=== PATIENT | male | born 1990 | race African-American/Black ===

== ENCOUNTER 2016-12-07 20:44 | Emergency (ER) | payer SELFPAY ==
[2016-12-07 20:52] VITALS: BMI 25.1
--- NOTE | 2016-12-07 21:53 | PDOC ---
History of Present Illness - General Chief Complaint: Pain Stated Complaint: ABDOMINAL PAIN Time Seen by Provider: 12/07/16 21:53 - History of Present Illness Initial Comments: 26 year old male, with PMH of HTN, diabetes, GERD, and gastroparesis presenting via EMS with nausea, vomiting and abdominal pain for the past 2 days. He denies recent sick symptoms or sick contacts stating that the diffuse, crampy abdominal pain began without inciting event. Of note, has recently run out of his insulin 2-3 weeks ago. He had non-bilious, non-bloody vomiting x 6 yesterday with 4 episodes today. His last bowel movement was yesterday afternoon and it was small, formed and non-bloody. He denies fevers, chills, diarrhea, constipation, chest pain, SOB, or other symptoms. He actually went to his job earlier this morning and felt OK for a short period of time and ate a sausage, egg, and cheese sandwich but started vomiting again a few hours after that. His PMD is Andria Aragon and he last saw her 2 months ago. His last ED visit for similar symptoms was 03/2016 during which he had the exact same symptoms for 5 days and was given IV fluids + Reglan with good resolution of symptoms and discharged with Reglan PO. 12/07/16 22:17 Past History - Past Medical History Allergies/Adverse Reactions: Allergies Allergy/AdvReac Type Severity Reaction Status Date / Time No Known Allergies Allergy Verified 12/07/16 20:50 Home Medications: Ambulatory Orders Lisinopril 5 mg PO DAILY 03/12/15 Metoclopramide HCl [Reglan] 10 mg PO AC 03/12/15 Insulin Aspart [Novolog] 0 unit SQ AC 03/30/15 Insulin Glargine,Hum.rec.anlog [Lantus (nf)] 30 units SQ HS 03/30/15 Ciprofloxacin [Cipro -] 500 mg PO Q12H #20 tablet 02/03/16 Ondansetron [Zofran -] 4 mg PO TID PRN #21 tablet 04/16/16 Metoclopramide HCl [Reglan -] 10 mg PO TID #21 tablet 04/18/16 Anemia: No Asthma: No Cancer: No Cardiac Disorders: No CVA: No COPD: No CHF: No Dementia: No Diabetes: Yes (since age 12) GI Disorders: Yes (GERD, gastroparesis) Disorders: No HTN: Yes Hypercholesterolemia: No Liver Disease: No Seizures: No Thyroid Disease: No - Surgical History Abdominal Surgery: No Appendectomy: No Cardiac Surgery: No Cholecystectomy: No Lung Surgery: No Neurologic Surgery: No Orthopedic Surgery: No - Family Disease History Family Disease History: Diabetes: Father, Heart Disease: Father - Immunization History Immunization Up to Date: Yes - Psycho/Social/Smoking Cessation Hx Anxiety: No Suicidal Ideation: No Smoking Status: No Smoking History: Never smoked Have you smoked in the past 12 months: No Number of Cigarettes Smoked Daily: 0 Information on smoking cessation initiated: No Hx Alcohol Use: No Drug/Substance Use Hx: No Substance Use Type: Marijuana Hx Substance Use Treatment: No Review of Systems - Review of Systems Constitutional: No: Chills, Diaphoresis HEENTM: No: Blurred Vision, Recent change in vision Respiratory: No: Cough, Shortness of Breath, SOB with Exertion ABD/GI: Yes: Nausea, Poor Fluid Intake, Vomiting, Abdominal cramping. No: Abdominal Distended, Constipated : No: Burning, Dysuria, Discharge, Hematuria, Incontinence *Physical Exam - Vital Signs Last Vital Signs Temp Pulse Resp BP Pulse Ox 98.6 F 52 L 18 135/72 100 12/07/16 20:50 12/07/16 20:50 12/07/16 20:50 12/07/16 20:50 12/07/16 20:50 - Physical Exam General Appearance: Yes: Nourished, Appropriately Dressed, Other (Sleeping and not complaining of pain.). No: Apparent Distress HEENT: positive: EOMI, HAMMAD, Normal ENT Inspection, Normal Voice, Other (Mucous membranes dry) Neck: positive: Trachea midline, Normal Thyroid, Supple. negative: Tender, Rigid Respiratory/Chest: positive: Lungs Clear, Normal Breath Sounds. negative: Chest Tender, Respiratory Distress Cardiovascular: positive: Regular Rhythm, Regular Rate, S1, S2. negative: Edema , Murmur Gastrointestinal/Abdominal: positive: Normal Bowel Sounds, Tender (Diffusely tender), Flat, Soft Musculoskeletal: positive: Normal Inspection Extremity: positive: Normal Inspection, Normal Range of Motion, Other (Patient able to ambulate without any instability or other issues.) Integumentary: positive: Normal Color, Dry, Warm Neurologic: positive: Fully Oriented, Alert, Normal Mood/Affect, Normal Response , Motor Strength 5/5 ED Treatment Course - LABORATORY CBC & Chemistry Diagram: 12/07/16 22:40 12/07/16 22:40 Medical Decision Making - Medical Decision Making 26 year old male with history of diabetes and gastroparesis presenting with nausea, vomiting, and abdominal pain over the past two days. This is concerning for gastroparesis vs. DKA. Will first get CBC, CMP, mg, phos, and UA. Will also give one liter IV fluid, pepcid, and zofran. If symptoms resolve and patient can tolerate PO, then will send home with metformin and return precautions. If patient's symptoms not resolving then can get abdominal films. 12/07/16 22:17 12/08/16 02:21 Patient's symptoms resolved. He tolerated PO well. Denied necessity of metformin. UA positive for ketones but glucose WNL and no acetone in blood. Will DC patient with return precautions. 12/08/16 02:25 *DC/Admit/Observation/Transfer Diagnosis at time of Disposition: Nausea and vomiting, Stomach pain - Discharge Dispostion Disposition: HOME Condition at time of disposition: Improved Admit: No - Patient Instructions Additional Instructions: You were seen for stomach pain. We are unsure what the exact cause was but its important that you follow up with your primary care physician and discuss the need for your diabetes medications as your blood sugar was normal here in the ED. Please return if you have worsening vomiting, fevers, chills, or other issues. - Post Discharge Activity Work/School Note: Back to Work - Attestations Physician Attestion: 12/08/16 02:25 I, Dr. Jonathan Harrison, attest that this document has been prepared under my direction and personally reviewed by me in its entirety. I further attest, that it accurately reflects all work, treatment, procedures and medical decision -making performed by me.
[2016-12-07] MEDS ORDERED: SODIUM CHLORIDE 1,000 ML IV STA (22:11)
[2016-12-07] MEDS ORDERED: ONDANSETRON 4 MG/2 ML VIAL IVPB ONE (22:25)
[2016-12-07] MEDS ORDERED: FAMOTIDINE 20 MG/50 ML IVPB 50 ML IVPB ONE ×2 (22:25→22:42)
[2016-12-07] MEDS ORDERED: ONDANSETRON 4 MG/2 ML VIAL ONE (22:42)
[2016-12-07 22:49] LABS: BASOPHIL 0.5 % (0-2.0); EOSINOPHIL 0.1 % (0-4.5); MCHC 32.9 g/dl (32.0-35.9); MEAN CELL VOLUME 88.3 fl (80-96); NEUTROPHILS 78.6 % (42.8-82.8); PLATELET COUNT 161 K/MM3 (134-434); RDW 13.5 % (11.9-15.9); WHITE BLOOD COUNT 6.6 K/mm3 (4.0-10.0)
[2016-12-07 23:16] LABS: ALBUMIN 4.1 g/dl (3.4-5.0); ALK PHOS 68 U/L (45-117); ANION GAP 7 (8-16); BILIRUBIN,TOTAL 0.9 mg/dL (0.2-1.0); CALCIUM 9.3 mg/dL (8.5-10.1); CO2 30 mmol/L (21-32); CREATININE 0.9 mg/dL (0.7-1.3); GLUCOSE,RANDOM 117 mg/dL (74-106); MAGNESIUM 2.2 mg/dL (1.8-2.4); PHOSPHOROUS 3.7 mg/dL (2.5-4.9); SGOT/AST 21 U/L (15-37); SGPT/ALT 32 U/L (12-78)
--- NOTE | 2016-12-07 23:56 | PDOC ---
Attending Attestation - Resident Resident Name: Jonathan Harrison - HPI HPI: 12/07/16 23:55 Pt comes with nausea and vomiting and gastroparesis. He is nocompliant with his meds for DM and HTN; however in the ER, pt's exam reveals neither DM or HTN. - Physicial Exam PE: 12/08/16 04:20 Agree with resident exam - Medical Decision Making 12/08/16 04:20 Home with clinic or PMD follow up. Pt has normal labs and he is feeling better in the ER with N/V management and with hydration.
[2016-12-08 01:25] LABS: URINE APPEARANCE SLCLOUDY; URINE BILIRUBIN NEGATIVE (NEGATIVE); URINE BLOOD NEGATIVE (NEGATIVE); URINE COLOR YELLOW; URINE GLUCOSE (UA) NEGATIVE (NEGATIVE); URINE KETONE 2+ (NEGATIVE); URINE LEUK ESTERASE NEGATIVE (NEGATIVE); URINE NITRITE NEGATIVE (NEGATIVE); URINE UROBILINOGEN NEGATIVE mg/dL (0.2-1.0)
[2016-12-08 01:33] LABS: URINE PROTEIN 2+ (NEGATIVE)
[2016-12-08 01:36] LABS: URINE HYALINE CAST 3 /lpf; URINE MUCUS MANY; URINE RBC 1 /hpf (0-3); URINE WBC 9 /hpf (3-5)
[2016-12-08 02:26] VITALS: BP 116/84; PULSE 89; TEMP 98.8
== END 2016-12-08 03:04 | disposition home or self-care (01) ==
LOC: JER 20:44
PROC: 3E033GC Introduction of Other Therapeutic Substance into Peripheral Vein, Percutaneous Approach (ICD-10-PCS; principal; 2016-12-07)
PROC: 3E033GC Introduction of Other Therapeutic Substance into Peripheral Vein, Percutaneous Approach (ICD-10-PCS; 2016-12-07)
DX: R10.84 Generalized abdominal pain (principal); E10.9 Type 1 diabetes mellitus without complications; Z79.4 Long term (current) use of insulin; I10 Essential (primary) hypertension; K31.84 Gastroparesis
CPT/HCPCS: 36415; 80053; 81003; 81015; 82009; 83735; 84100; 85025; 99283-25

== ENCOUNTER 2017-08-26 09:39 | Emergency (ER) | payer SELFPAY ==
[2017-08-26 09:45] VITALS: TEMP 98.2; BMI 26.4
[2017-08-26] MEDS ORDERED: SODIUM CHLORIDE 1,000 ML IV STA ×2 (10:03→11:38)
[2017-08-26] MEDS ORDERED: METOCLOPRAMIDE HCL INJECTION 10 MG/2 ML VIAL IVPB ONE (10:03)
[2017-08-26] MEDS ORDERED: KETOROLAC TROMETHAMINE 30 MG/1 ML VIAL IVPUSH ONE (10:06)
[2017-08-26] MEDS ORDERED: METOCLOPRAMIDE HCL INJECTION 10 MG/2 ML VIAL ONE (10:33)
[2017-08-26] MEDS ORDERED: KETOROLAC TROMETHAMINE 30 MG/1 ML VIAL ONE (10:33)
[2017-08-26 10:38] LABS: VENOUS PC02 43.2 mmHg (38-52); VENOUS PH 7.48 (7.32-7.42); VENOUS PO2 73.2 mmHg (28-48)
[2017-08-26 10:39] LABS: BASO % 0.7 % (0-2.0); EOS % 0.2 % (0-4.5); HEMATOCRIT 41.3 % (35.4-49); LYMPH % 26.1 % (8-40); MCH 29.9 pg (25.7-33.7); MCHC 33.8 g/dl (32.0-35.9); MEAN CELL VOLUME 88.4 fl (80-96); MEAN PLT VOLUME 9.7 fl (7.5-11.1); MONO % 9.4 % (3.8-10.2); NEUT % 63.6 % (42.8-82.8); PLATELET COUNT 146 K/MM3 (134-434); RBC 4.67 M/mm3 (4.00-5.60); RDW 12.7 % (11.9-15.9); WHITE BLOOD COUNT 5.8 K/mm3 (4.0-10.0)
[2017-08-26 10:42] LABS: URINE APPEARANCE CLEAR; URINE BILIRUBIN NEGATIVE (<2.0 mg/dL); URINE COLOR YELLOW; URINE GLUCOSE (UA) NEGATIVE (NEGATIVE); URINE KETONE 1+ (NEGATIVE); URINE LEUK ESTERASE NEGATIVE (NEGATIVE); URINE NITRITE NEGATIVE (NEGATIVE); URINE UROBILINOGEN 4.0 E.U/dl mg/dL (0.2-1.0)
[2017-08-26 10:44] LABS: URINE PROTEIN 2+ (NEGATIVE)
[2017-08-26 10:46] LABS: EPI CELLS RARE /HPF (FEW); URINE BACTERIA RARE /hpf (NONE SEEN); URINE MUCUS RARE
[2017-08-26 11:02] LABS: ALBUMIN 3.8 g/dl (3.4-5.0); ALK PHOS 76 U/L (45-117); ANION GAP 7 (8-16); BILIRUBIN,TOTAL 0.9 mg/dL (0.2-1.0); BLOOD UREA NITROGEN 10 mg/dL (7-18); CALCIUM 8.7 mg/dL (8.5-10.1); CHLORIDE 101 mmol/L (98-107); CO2 31 mmol/L (21-32); CREATININE 0.9 mg/dL (0.7-1.3); GLUCOSE,RANDOM 138 mg/dL (74-106); LIPASE 64 U/L (73-393); MAGNESIUM 2.3 mg/dL (1.8-2.4); POTASSIUM 3.4 mmol/L (3.5-5.1); SGOT/AST 44 U/L (15-37); SGPT/ALT 40 U/L (12-78); SODIUM 139 mmol/L (136-145); TOT PROT 7.1 g/dl (6.4-8.2)
[2017-08-26 11:04] LABS: COCAINE, UR NEGATIVE ng/ml (CUTOFF=300); METHADONE, UR NEGATIVE ng/ml (CUTOFF=300); OPIATES, URI NEGATIVE ng/ml (CUTOFF=300); PHENCYCLIDINE,URINE NEGATIVE ng/ml (CUTOFF=25); URINE AMPHETAMINES NEGATIVE ng/ml (CUTOFF=500); URINE BARBITURATES NEGATIVE ng/ml (CUTOFF=200); URINE BENZODIAZEPINES NEGATIVE ng/ml (CUTOFF=200)
[2017-08-26] MEDS ORDERED: POTASSIUM CHLORIDE TABS 20 MEQ TABLET.ER (FP) PO ONE ×2 (11:38→11:54)
--- NOTE | 2017-08-26 11:45 | PDOC ---
History of Present Illness - General Chief Complaint: Pain, Acute Stated Complaint: ABD PAIN, VOMITING Time Seen by Provider: 08/26/17 10:02 History Source: Patient Exam Limitations: No Limitations - History of Present Illness Travel History: No Initial Comments: 08/26/17 10:40 27 yr old male presents to the emergency with complaints of abdominal pain including generalized weakness along with nausea vomiting. Patient denies fever , chills, recent change in medication or weight. Patient denies recent travel but states was a [place] a few days prior secondary to the same complaints. Patient states continues to smoke marijuana by recommendations. Patient denies elevated glucose, urine output, increased thirst, increased hunger. Timing/Duration: reports: intermittent Quality: reports: moderate, cramping Abdominal Pain Onset Location: reports: generalized abdomen Alleviating Factors: improves with: Vomiting Past History - Travel Traveled outside of the country in the last 30 days: No - Past Medical History Allergies/Adverse Reactions: Allergies Allergy/AdvReac Type Severity Reaction Status Date / Time No Known Allergies Allergy Verified 08/26/17 09:40 Home Medications: Ambulatory Orders Insulin Aspart [Novolog] 0 unit SQ AC 03/30/15 Insulin Glargine,Hum.rec.anlog [Lantus (nf)] 30 units SQ HS 03/30/15 Anemia: No Asthma: No Cancer: No Cardiac Disorders: No CVA: No COPD: No CHF: No Dementia: No Diabetes: Yes (since age 12) GI Disorders: Yes (GERD, gastroparesis) Disorders: No HTN: Yes Hypercholesterolemia: No Liver Disease: No Seizures: No Thyroid Disease: No - Surgical History Abdominal Surgery: No Appendectomy: No Cardiac Surgery: No Cholecystectomy: No Lung Surgery: No Neurologic Surgery: No Orthopedic Surgery: No - Family Disease History Family Disease History: Diabetes: Father, Heart Disease: Father - Immunization History Immunization Up to Date: Yes - Suicide/Smoking/Psychosocial Hx Smoking Status: No Smoking History: Unknown if ever smoked Have you smoked in the past 12 months: No Number of Cigarettes Smoked Daily: 0 Hx Alcohol Use: No Drug/Substance Use Hx: No Substance Use Type: Marijuana Hx Substance Use Treatment: No Patient Lives Alone: No Abd/GI Specific PMHX - Complaint Specific PMHX Colitis: No GERD: Yes (gastroparesis) Review of Systems - Review of Systems Able to Perform ROS?: No Is the patient limited Setswana proficient: No Constitutional: Yes: Loss of Appetite, Weakness HEENTM: No: Symptoms Reported Respiratory: No: Symptoms reported Cardiac (ROS): No: Symptoms Reported ABD/GI: Yes: Nausea, Poor Appetite, Poor Fluid Intake, Vomiting, Abdominal cramping Integumentary: No: Symptoms Reported Neurological: No: Symptoms reported *Physical Exam - Vital Signs Last Vital Signs Temp Pulse Resp BP Pulse Ox 98.2 F 60 19 149/97 100 08/26/17 09:40 08/26/17 09:40 08/26/17 09:40 08/26/17 09:40 08/26/17 09:40 - Physical Exam General Appearance: Yes: Nourished, Appropriately Dressed. No: Apparent Distress HEENT: positive: EOMI, HAMMAD, TMs Normal, Pharynx Normal (dry) Respiratory/Chest: positive: Lungs Clear, Normal Breath Sounds. negative: Respiratory Distress, Accessory Muscle Use Cardiovascular: positive: Regular Rhythm, Regular Rate. negative: Murmur Vascular Pulses: Dorsalis-Pedis (R): 2+, Doralis-Pedis (L): 2+ Gastrointestinal/Abdominal: positive: Normal Bowel Sounds, Soft, Tenderness ( epigastric /periumbilical). negative: Distended Extremity: positive: Normal Capillary Refill. negative: Pedal Edema Integumentary: positive: Normal Color, Warm, Moist Neurologic: positive: Motor Strength 5/5 (ambulatory) ED Treatment Course - LABORATORY CBC & Chemistry Diagram: 08/26/17 10:30 08/26/17 10:30 - ADDITIONAL ORDERS Additional order review: Laboratory Results 08/26/17 08/26/17 08/26/17 10:30 10:30 10:30 VBG pH 7.48 H POC VBG pCO2 43.2 POC VBG pO2 73.2 H D Mixed VBG HCO3 31.7 H Sodium 139 Potassium 3.4 L Chloride 101 Carbon Dioxide 31 Anion Gap 7 L BUN 10 Creatinine 0.9 Creat Clearance w eGFR > 60 Random Glucose 138 H Calcium 8.7 Magnesium 2.3 Total Bilirubin 0.9 AST 44 H D ALT 40 D Alkaline Phosphatase 76 Total Protein 7.1 Albumin 3.8 Lipase 64 L Urine Color Urine Appearance Urine pH Ur Specific Orrick Urine Protein Urine Glucose (UA) Urine Ketones Urine Blood Urine Nitrite Urine Bilirubin Urine Urobilinogen Ur Leukocyte Esterase Urine WBC (Auto) Urine RBC (Auto) Ur Epithelial Cells Urine Bacteria Urine Mucus Opiates Screen Negative Methadone Screen Negative Barbiturate Screen Negative Phencyclidine Screen Negative Ur Amphetamines Screen Negative MDMA (Ecstasy) Screen Negative Benzodiazepines Screen Negative Cocaine Screen Negative U Marijuana (THC) Screen Positive 08/26/17 10:30 VBG pH POC VBG pCO2 POC VBG pO2 Mixed VBG HCO3 Sodium Potassium Chloride Carbon Dioxide Anion Gap BUN Creatinine Creat Clearance w eGFR Random Glucose Calcium Magnesium Total Bilirubin AST ALT Alkaline Phosphatase Total Protein Albumin Lipase Urine Color Yellow Urine Appearance Clear Urine pH 7.0 D Ur Specific Orrick 1.023 Urine Protein 2+ H Urine Glucose (UA) Negative Urine Ketones 1+ H Urine Blood Negative Urine Nitrite Negative Urine Bilirubin Negative Urine Urobilinogen 4.0 e.u/dl Ur Leukocyte Esterase Negative Urine WBC (Auto) 2 Urine RBC (Auto) 3 Ur Epithelial Cells Rare Urine Bacteria Rare Urine Mucus Rare Opiates Screen Methadone Screen Barbiturate Screen Phencyclidine Screen Ur Amphetamines Screen MDMA (Ecstasy) Screen Benzodiazepines Screen Cocaine Screen U Marijuana (THC) Screen 08/26/17 10:30 RBC 4.67 MCV 88.4 MCHC 33.8 RDW 12.7 MPV 9.7 Neutrophils % 63.6 Lymphocytes % 26.1 D Monocytes % 9.4 D Eosinophils % 0.2 D Basophils % 0.7 - Medications Given in the ED: ED Medications Discontinued Medications Generic Name Dose Route Start Last Admin Trade Name Freq PRN Reason Stop Dose Admin Diphenhydramine HCl 50 mg 08/26/17 10:06 08/26/17 10:30 Benadryl Injection - IVPB 08/26/17 10:07 50 mg ONCE ONE Administration Sodium Chloride 1,000 mls @ 1,000 mls/hr 08/26/17 10:03 08/26/17 10:30 Normal Saline - IV 08/26/17 11:02 1,000 mls/hr ASDIR STA Administration Ketorolac Tromethamine 30 mg 08/26/17 10:08/26/17 10:45 Toradol Injection - IVPUSH 08/26/17 10:07 30 mg ONCE ONE Administration Metoclopramide HCl 10 mg 08/26/17 10:03 08/26/17 10:30 Reglan Injection - IVPB 08/26/17 10:04 10 mg ONCE ONE Administration Medical Decision Making - Medical Decision Making 08/26/17 10:42 Patient complains of generalized abdominal pain nausea vomiting and generalized weakness of poor appetite. Patient states symptoms began last week and was relieved after going to [facility] on Saturday but returned yesterday and so decided come to the ER. Patient exam had epigastric and periumbilical tenderness with no acute findings. Patient appears dehydrated. Patient ordered for labs, urine and urine toxicology, IV Benadryl, Reglan and IV fluids. 08/26/17 11:44 Laboratory Tests 08/26/17 08/26/17 08/26/17 10:30 10:30 10:30 WBC 5.8 Hgb 14.0 Hct 41.3 Neutrophils % 63.6 VBG pH 7.48 H Sodium Potassium Chloride Carbon Dioxide Anion Gap BUN Creatinine Random Glucose Calcium Magnesium Total Bilirubin AST ALT Alkaline Phosphatase Lipase Urine Protein 2+ H Urine Ketones 1+ H Ur Leukocyte Esterase Negative Urine WBC (Auto) 2 Urine RBC (Auto) 3 Opiates Screen Methadone Screen Barbiturate Screen Phencyclidine Screen Ur Amphetamines Screen MDMA (Ecstasy) Screen Benzodiazepines Screen Cocaine Screen U Marijuana (THC) Screen Acetone, Qual 08/26/17 08/26/17 10:30 10:30 WBC Hgb Hct Neutrophils % VBG pH Sodium 139 Potassium 3.4 L Chloride 101 Carbon Dioxide 31 Anion Gap 7 L BUN 10 Creatinine 0.9 Random Glucose 138 H Calcium 8.7 Magnesium 2.3 Total Bilirubin 0.9 AST 44 H D ALT 40 D Alkaline Phosphatase 76 Lipase 64 L Urine Protein Urine Ketones Ur Leukocyte Esterase Urine WBC (Auto) Urine RBC (Auto) Opiates Screen Negative Methadone Screen Negative Barbiturate Screen Negative Phencyclidine Screen Negative Ur Amphetamines Screen Negative MDMA (Ecstasy) Screen Negative Benzodiazepines Screen Negative Cocaine Screen Negative U Marijuana (THC) Screen Positive Acetone, Qual Pending Patient ordered for 1 L of fluid, k dur, and will be offered a food tray. Patient states feeling much better after receiving the medication. 08/26/17 12:17 Patient will be discharged home once he completes a normal saline. He was seen by social work as per his request *DC/Admit/Observation/Transfer Diagnosis at time of Disposition: Nausea and vomiting - Discharge Dispostion Disposition: HOME Condition at time of disposition: Improved - Referrals - Patient Instructions Printed Discharge Instructions: Nausea and Vomiting-Adult Additional Instructions: Please eat small frequent bland food for the next 48 hours and advance as tolerated. Please take Reglan as needed for nausea. please check your sugar routinely. If symptoms worsen despite above recommendations please return to the ED. - Post Discharge Activity Forms/Work/School Notes: Back to Work
[2017-08-26 12:02] LABS: ACETONE SERUM NEGATIVE (NEGATIVE)
[2017-08-26 12:32] VITALS: BP 124/66; PULSE 54
== END 2017-08-26 12:56 | disposition home or self-care (01) ==
LOC: JER 09:39
DX: R11.2 Nausea with vomiting, unspecified (principal); I10 Essential (primary) hypertension; E10.9 Type 1 diabetes mellitus without complications; Z79.4 Long term (current) use of insulin; K21.9 Gastro-esophageal reflux disease without esophagitis
CPT/HCPCS: 36415; 80053; 80307; 81003; 81015; 82009; 82803; 83690; 83735; 85025; 99282-25; J7030